=== PATIENT | male | born 1955 | race Caucasian/White ===

== ENCOUNTER 2016-09-17 12:35 | Inpatient (IN) | payer MEDICARE, OTHER ==
[~2016-09-17] VITALS: Ht 180.3 cm; Wt 88.3 kg
[~2016-09-17 12:35] MED LIST: AUGMENTIN 875-1 EACH PO; CEFDINIR300 MG PO; CLONAZEPAM1 MG PO; DEPAKOTE ER500 MG PO; DESMOPRESSIN A0.2 MG PO; DIVALPROEX SOD500 M1 PO; DIVALPROEX SOD500 MG PO; FLOMAX0.4 MG PO; HYDROCHLOROTH12.5 M1 PO; KLONOPIN1 MG PO; LEVAQUIN250 MG PO; LEVAQUIN500 MG PO; LEVOFLOXACIN250 MG PO; LEVOTHYROXINE137 MCG PO; LEVOTHYROXINE25 MCG PO; LEVOTHYROXINE50 MCG PO; LISINOPRIL2.5 MG PO; LITHIUM CARBON300 M1 PO; LITHIUM CARBON300 MG PO; MIRALAX17 GM PO; MUCINEX600 MG PO; OMEPRAZOLE20 MG PO; PRILOSEC20 MG PO; QUETIAPINE FUM300 MG PO; SEROQUEL300 MG PO; SYNTHROID25 MCG PO; ULTRAM50 MG PO
--- NOTE | 2016-09-21 09:28 | NUR ---
PT ASST INTO BED BY BEBA THAORN OUTPATIENT SURGERY. WIPE DOWN PROCESS DONE AND PT RESTING IN BED WITH SIDE RAILES UP. PT ABLE TO ANSWER SOME ADMISSION QUESTIONS. PT ALERT AND ORIENTED TO PERSON, PLACE AND PROCEDURE. UNABLE TO ANSWER DATE OR TIME. PT REPORTS TAKING "MEDICINE THIS AM WITH WATER" BOOT IN PLACE TO LEFT FOOT/ANKLE. LEFT FOOT WARM AND PINK, QUICK CAP REFILL NOTED. WHEN ASKED IF PT IS HAVING PAIN HE SAYS "YES" BUT IS UNBLE TO RATE PAIN. SMILE FACE PAIN ASSESSMENT TOOL ATTEMPTED WITH NO SUCCESS. PT HAS FLAT AFFECT AND DOES NOT APPEAR TO BE IN DISTRESS. PT ASKED IF TV TO BE ON AND CURRENTLY WATCHING AND ASKING ABOUT HAVING FOOD. MULTIPLE BRUISES NOTED ON RIGHT THIGH AND CALF, SMALL SCAB NOTED ON RIGHT CALF BELOW KNEE. APPEARS TO BE HEALING. SMALL SCAB NOTED ON LEFT ELBOW THAT APPEARS TO BE HEALING. PT REPORTS "FALL IN THE LAUNDRY ROOM".
--- NOTE | 2016-09-21 09:52 | NUR ---
BOOT REMOVED FROM LEFT FOOT/LEG TO REMOVE SWEAT PANTS. 3-4+ PITTING EDEMA NOTED IN ANKLE AND CALF AREA. REDNESS NOTED IN ANKLE AND MULTIPLE BRUISES NOTED ON LEFT CALF/FOOT AREA. PT ASST 2 RNS WITH MOVING OF THE FOOT AND REPOSITIONING INTO BOOT. FOOT/LEG ELEVATED ON PILLOW. WARM BLANKET GIVEN.
--- NOTE | 2016-09-21 10:44 | NUR ---
PT RESTING IN BED. ASKING ABOUT "WHEN CAN I EAT" "IS IT TIME FOR SURGERY" FARMER CATH INTACT WITH YELLOW URINE.
--- NOTE | 2016-09-21 10:53 | NUR ---
FARMER CATH BAG EMPTIED. 100 ML YELLOW URINE.
--- NOTE | 2016-09-21 12:54 | NUR ---
09/21/16 1254 Katty Castaneda 1247 - pt arrived to pacu. OPA IN PLACE. PILLOW PLACED NEAR LEG FOR EXPECTED MOVMENT UP ON WAKE UP.
--- NOTE | 2016-09-21 14:10 | NUR ---
PT TO ROOM 110 AT THIS TIME FORM PACU, LJ REPORT BRADEN THAO. PT ALERT AND VERBALIZING. REPORTS PAIN 4/10, REQUESTS FOOD, REPORTS NO NAUSEA. V/S STABLE
--- NOTE | 2016-09-21 15:19 | NUR ---
PLACED A BEAR HUGGER ON PT BECAUSE HE HAS BEEN SHIVERING, NURSE REQUESTED IT.
--- NOTE | 2016-09-21 15:42 | NUR ---
PT REPORTS THAT HE IS STILL PAINFUL 06/17 AFTER ONE NORCO ADMISNTERED, SECOND NORCO GIVEN NOW. PT REQUESTS MRE FOOD AT THIS TIME. PT HAS BEAR HUGGER ON DUE TO LOW BODY TEMP. THIS IS IMPROVING.
--- NOTE | 2016-09-21 16:45 | NUR ---
PT HAD HARDWARE PLACED FOR ANKLE TODAY, HE HAS BEEN TOLERATING REGULAR DIET GOOD URINE OUT. NORCO PO ADMINISTERED FOR PAIN / THIS HAS BEEN EFFECTIVE. HAS CONSULTED. FAMILY/SISTER IS IN ROOM AT THIS TIME. HE IS DRINKING COPIUOS AMOUNTS OF WATER. DRESSING AT LEFT ANKLE IS C/D/I, ICE IN TO LEFT ANKLE.
--- NOTE | 2016-09-21 19:00 | NUR ---
BEDSIDE REPORT RECEIVED FROM OFFGOING NURSE. PT LYING IN BED REQUESTING MILKSHAKES AND ICE CREAM. LLE ELEVATED ON PILLOW WITH ICE PRESENT TO LLE. SCD PRESENT TO RLE. MEPILEX, CAST PADDING, AND COBAN C/D/I. CMS INTACT. PT DENIES OTHER NEEDS. CALL LIGHT WITHIN REACH.
--- NOTE | 2016-09-21 20:00 | NUR ---
PT ASSESSMENT COMPLETE. PT DENIES PAIN. DRESSING TO LLE REMAINS C/D/I, ELEVATED ON PILLOW. PT ABLE TO TAKE HIS PILLS WITH WATER AND PUDDING, TOLERATED WELL. PT'S SISTER IN TO VISIT PATIENT. PT DENIES NEEDS. CALL LIGHT WITHIN REACH.
--- NOTE | 2016-09-21 21:30 | NUR ---
PT PUSHES CALL LIGHT, WONDERING ABOUT WHEN HE CAN GET UP IN THE MORNING. INQUIRING ABOUT CATHETER, WHERE HIS PANTS ARE. PT REASSURED. PILLOW PLACED BEHIND PT'S BACK FOR COMFORT. PT'S LLE REPOSITIONED BACK ONTO PILLOW. DRESSING TO LLE C/D/I. PT DENIES OTHER NEEDS AT THIS TIME. CALL LIGHT WITHIN REACH.
--- NOTE | 2016-09-22 01:20 | NUR ---
PT ASSESSMENT COMPLETE. PT STATES THAT HE IS HAVING PAIN. UNABLE TO ACCURATELY UTILIZE PAIN SCALE. PRN NORCO TO BE ADMINISTERED. DRESSING TO LLE C/D/I. CMS INTACT. LLE CONTINUES TO BE ELEVATED ON PILLOW. SCD PRESENT TO RLE. PT TALKATIVE. INQUIRING ABOUT HOW LONG HE WILL BE IN THE HOSPITAL. WANTS TO KNOW WHEN THE PHYSICAL THERAPIST WILL COME SEE HIM. ASKING TO BE TAKEN TO THE CAFETERIA. PT DENIES OTHER NEEDS. CALL LIGHT WITHIN REACH.
--- NOTE | 2016-09-22 03:35 | NUR ---
PT LYING IN BED AWAKE. PT REQUESTING 2 GLASSES OF ORANGE JUICE. INQUIRING ABOUT WHEN BREAKFAST WILL BE SERVED. PT STATES THAT LEG "FEELS BETTER". 1 GLASS OF ORANGE JUICE GIVEN. PT DENIES OTHER NEEDS. PRECAUTIONS REMAIN IN PLACE. LLE ELEVATED ON PILLOW. CALL LIGHT WITHIN REACH.
--- NOTE | 2016-09-22 04:51 | NUR ---
PT AWAKE ALL SHIFT. NORCO X1 PRN THIS SHIFT. PT UNABLE TO ACCURATELY UTILIZE PAIN SCALE. MEPILEX, CAST PADDING, COBAN TO LLE, C/D/I. LLE ELEVATED ON PILLOW. CMS INTACT, PT ABLE TO WIGGLE TOES. ICE TO LLE. SCD ON RLE. PT TOLERATING REGULAR DIET VERY WELL. DRINKING LARGE AMOUNTS OF FLUIDS. FARMER CATH IN PLACE. UO QS. IV SL.
--- NOTE | 2016-09-22 06:02 | NUR ---
PT ASSESSMENT COMPLETE. PT LYING IN BED AWAKE. DENIES PAIN OR NAUSEA. REQUESTING TO "GET A RIDE TO THE CAFETERIA". DRESSING TO LLE C/D/I. CMS INTACT. PT UNABLE TO STATE WHETHER HE FEELS NUMBNESS OR TINGLING, ABLE TO WIGGLE TOES. LLE REMAINS ELEVATED ON PILLOW. ICE PRESENT. SCD PRESENT TO RLE. FARMER CATH DRAINING CLEAR YELLOW URINE. PT DENIES NEEDS AT THIS TIME. CALL LIGHT WITHIN REACH.
--- NOTE | 2016-09-22 07:32 | NUR ---
BEDSIDE REPORT PT IS SITTING UP IN BED ALERT, ASKED WHEN BREAKFAST WOULD BE HERE. DRESSING CDI. FARMER DRAINING WELL, WNL. PT IS COOPERATIVE
--- NOTE | 2016-09-22 12:33 | NUR ---
PT SITTING IN CHAIR, LEG UP. HE TOLD ME HE FELL IN THE LAUNDRY RM. REALLY WANTS A CUP OF COFFEE, THEN HE DECIDED HE WANTED A COKE. CHECKED WITH HIS RN, YANNICK SAID EITHER WILL BE FINE. I GOT HIM A COLA, HE IMMEDIATELY BEGAN TO DRINK. WILL CONTINUE TO CHECK BACK
[2016-09-22] MEDS ORDERED: NEOMYCIN-POLYMY10 ML OTIC (12:42)
[2016-09-22] MEDS ORDERED: OXYCODONE-ACET1 EAC1 PO (12:43)
--- NOTE | 2016-09-22 12:54 | NUR ---
Pt got patient up in chair this morning.
--- NOTE | 2016-09-22 13:13 | NUR ---
MED REC COMPLETE WITH [facility] REFILL HISTORY.
--- NOTE | 2016-09-22 13:15 | NUR ---
PT SITTING UP IN RECLINER ALERT. PT REPORTS "ITS BETTER" WHEN ASKED IF HE IS HAIVNG PAIN.
--- NOTE | 2016-09-22 17:18 | NUR ---
PT HAS BEEN UP TWICE WITH PHYSICAL THERAPY NOT COMPLIANT WITH TOE TOUCH ONLY PER [facility]. HE HAS REPORTED PAIN 5-6/10 NORCO HAS BEEN EFFECTIVE. GOOD NUTRIONAL INTAKE, FLUID INTAKE, GOOD URINE OUT. PT HAS BEEN COOPERATIVE WITH CARE PLAN, BUT HAS DIFFICULTY FOLLOWING DIRECTION WELL. HIS DRESSING IS CDI, ELEVATED WITH ICE. SCD ON RIGHT LEG. S/L, V/S STABLE
--- NOTE | 2016-09-22 18:10 | NUR ---
PT RESTING IN BED EYES CLOSED RR EVEN 18 BPM, NO DISTRESS NOTED. PT APPEARS TO BE SLEEP WELL
--- NOTE | 2016-09-22 19:35 | NUR ---
Report recieved from day shift. Pt resting in bed. Denies needs at this time. Call keller within reach.
--- NOTE | 2016-09-22 23:08 | NUR ---
PT CONTINUES TO HAVE MOIST COUGH, O2 SAT 87% RA WHILE ASLEEP, APPLIED 2L O2, O2 LEVEL INCREASED TO 94%. REASSESSED PT 15 MINUTES LATER, PT'S O2 AT 89% ON 2L O2. CALLED DR. BLAIR, OBTAINED ORDER FOR [facility] [place]. CALLED RT TO INFORM OF PT'S STATUS.
--- NOTE | 2016-09-23 00:33 | NUR ---
PT SLEEPING. CONT PULSE OX IN USE, PT'S O2 AT 93% ON 3L O2. HR AT 100. CALL LOOMIS WITHIN REACH.
--- NOTE | 2016-09-23 04:11 | NUR ---
BOOSTED AND REPOSITIONED PT ON L SIDE WITH ASSIST. HYDRATION OFFERED, REFILLED WATER AND ICE PACKS. LLE ELEVATED ON 2 PILLOWS. PT'S O2 AT 96% ON 3L. TITRATED O2 DOWN TO 2L, O2 NOW AT 92-94%. CONT PULSE OX IN USE.
--- NOTE | 2016-09-23 05:46 | NUR ---
PT SLEPT ALL NIGHT. PT'S O2 WHILE ASLEEP ON RA 87%, APPLIED 2L, DIM/CRACKLES AUSCULTATED BLL ON FIRST ASSESSMENT, MOIST COUGH. OBTAINED PRN ATROVENT. CALLED RT TO NOTIFY. PT NOW ON 2L AT 94%, MOIST COUGH STILL PRESENT, LUNG SOUNDS HAVE IMPROVED MINIMALLY. NO PRN PAIN MED NEEDED.
--- NOTE | 2016-09-23 07:05 | NUR ---
BEDSIDE REPORT RECEIVED FROM EMMY. PATIENT RESTING IN BED AWAKE DENIED PAIN. DRESSING ON LEFT LEG INTACT. IV SITE S/L AND PATENT. NO APPARENT DISTRESS NOTED.
--- NOTE | 2016-09-23 08:20 | OR ---
[facility] [address], [place] [address] Signed DATE OF PROCEDURE: 09/21/16 PREOPERATIVE DIAGNOSIS Left ankle bimalleolar fracture dislocation. POSTOPERATIVE DIAGNOSIS Left ankle bimalleolar fracture dislocation. PROCEDURE PERFORMED Open reduction and internal fixation of bimalleolar fracture, left ankle. SURGEON: Natalie Núñez MD. ASSISTANTS KAROL Alanis PAS Kristin was present for the entire surgery and was critical for positioning, retraction, and wound closure. ANESTHESIA: General. BLOOD LOSS: Minimal. TOURNIQUET TIME: 47 minutes. IMPLANTS Seven-hole one-third tubular plate with 8 screws laterally, 3 screws and the hook plate medially. BRIEF HISTORY Otoniel is a 61-year-old gentleman with significant MRDD. He fractured his ankle and walked on it for at least 4 or 5 days before he was diagnosed. He did have a small wound medially that may have represented an open fracture, although it was difficult to tell at the time of his evaluation by us. Risks, benefits, and alternatives were discussed with him and his caregiver and they elected to proceed. DESCRIPTION OF PROCEDURE Once consent was obtained, he was taken to the operating room. After adequate anesthesia, he was placed on operating room table. All downside pressure points were placed and a hip bump was placed. He was placed in well-padded proximal thigh tourniquet and prepped and draped in a standard sterile fashion. His leg was exsanguinated using Esmarch bandage. Tourniquet inflated to 250 mmHg. Standard lateral approach through a Electronically Signed By: NATALIE NÚÑEZ MD 09/23/16 0820 PATIENT NAME: MARCIANO CORONA OPERATIVE REPORT DATE OF : 51 PHYSICIAN: NATALIE NÚÑEZ MD REPORT #: [id number] REPORT IS CONFIDENTIAL AND NOT TO BE RELEASED WITHOUT AUTHORIZATION [facility] [address], [place] [address] Signed direct incision was taken through skin and subcutaneous tissue. The periosteum was incised longitudinally and elevated. The fracture was identified, distracted and cleaned. It was then reduced and held using a single K-wire. A standard AO lag screw was placed from anterior to posterior. The plate was then fashioned to fit the lateral side of the fibula and was held with a single screw in the center position. This was checked using image intensifier and found to be satisfactory. Five total screws were placed proximally and 2 locking screws distally. The wound was copiously irrigated with antibiotic solution and closed using 2-0 nylon . Attention was turned to the medial side. A longitudinal incision was made. There was a small wound that was excised using an elliptical incision. The periosteum was flipped out of the wound and the fracture was cleaned and held using a clamp. The K-wire was advanced from the tip of the malleolus engaging the body of the tibia. This was checked using image intensifier and found to be satisfactory. The plate was then placed just anterior to this. The single screw in the distal end of the hook plate was then advanced parallel to the wire. The 2 screws proximally were placed compressing the fracture. Again, this was cleaned and closed using 2-0 nylon only on this side. The wounds were dressed with Mepilex Ag dressing and bulky Reed dressing. He tolerated procedure well. All sponge, needle, instrument counts were correct. Natalie Núñez MD BA/Huang /[id number] cc: Grzegorz Rios MD Electronically Signed By: NATALIE NÚÑEZ MD 09/23/16 0820 PATIENT NAME: MARCIANO CORONA OPERATIVE REPORT DATE OF : 51 PHYSICIAN: NATALIE NÚÑEZ MD REPORT #: [id number] REPORT IS CONFIDENTIAL AND NOT TO BE RELEASED WITHOUT AUTHORIZATION
--- NOTE | 2016-09-23 09:05 | NUR ---
SHIFT ASSESSMENT COMPLETE. PATIENT DENIES PAIN AT THIS TIME. PADDING CAST ON LEFT FOOT WNL. PEDAL PULSES PRESENT AND PALPABLE. CONGESTIVE COUGH. LUNGS COARSE THROUGHOUT. PATIENT ABLE TO ANSWER SIMPLE QUESTIONS. POSITIVE BOWEL TONES. SKIN INTACT. WILL CONTINUE TO MONITOR.
--- NOTE | 2016-09-23 09:38 | NUR ---
PATIENT AWAKE IN BED. SET UP FOR BREAKFAST. EMPTYED GARBAGE. ICE WATER. CALL LIGHT IN REACH.
--- NOTE | 2016-09-23 09:55 | NUR ---
ASSISTED PHYSICAL THERAPIST TO GET PATIENT UP TO CHAIR. PATIENT DOES NOT FOLLOW COMMAND WELL. WALKED TO CHAIR WITH 2 PERS ASSIST WITH FWW. PATIENT SITTING IN THE CHAIR AT THIS TIME. DENIES PAIN. NO APPARENT DISTRESS NOTED.
--- NOTE | 2016-09-23 11:37 | NUR ---
PATIENT UP IN CHAIR. TOOK VITALS. MADE SURE CHAIR ALARM WAS ON. CALL LIGHT IN REACH.
--- NOTE | 2016-09-23 12:42 | NUR ---
PATIENT UP TO CHAIR RESTING. REPORTED 3/10 PAIN AT THE LEFT ANKLE. PATIENT WAS MEDICATED. EATING LUNCH AT THIS TIME.
--- NOTE | 2016-09-23 13:15 | NUR ---
DR BLAIR WAS IN ROOM TO EVALUATE PATIENT. PLAN FOE X-RAY DUE TO LOW O2 SAT AND CONGESTIVE COUGH.
--- NOTE | 2016-09-23 14:50 | NUR ---
PATIENT RESTING IN THE CHAIR, EYES CLOSED. RR EVEN/UNLABORED. NO APPARENT DISTRESS NOTED. WILL CONTINUE TO MONITOR
--- NOTE | 2016-09-23 14:59 | NUR ---
PATIENT IN BED. TOOK VITAILS. TOOK LUNCH TRAY. CLEANED FACE. FRESH ICE WATER. CALL LIGHT IN REACH.
--- NOTE | 2016-09-23 18:30 | NUR ---
PATIENT HAD A FAIR DAY. WORKED WITH PHYSICAL THERAPIST TWICE TODAY AND TOLERATED WELL. PADDING CAST ON LEFT LEG AND FOOT WNL. PEDAL PULSES PRESENT. HAS BEEN UP TO CHAIR WITH 2 PERS ASSIST WITH FWW. S/L. CHEST X-RAY WAS DONE THIS PM, NEGATIVE FOR PNEUMONIA. LEFT FOOT TOE TOUCH ON AMBULATION. PAIN MED WAS ADMINISTERED ONCE.
--- NOTE | 2016-09-23 18:57 | NUR ---
CLAUDE CABRERA AND I TRANSFERRED PATIENT FROM BED TO CHAIR USING WALKER AND GAITBELT. PATIENT IS CURRENTLY SITTING IN CHAIR WAITING FOR DINNER TO ARRIVE. NURSE ADELIA CALLED IT DOWN EARLIER. NURSE NATHANAEL CALLED DOWN AND KITCHEN SAID THEY ARE RUNNING BEHIND. I PUT A NEW PULSE OX ON HIS FINGER HIS WAS GETTING DIRTY AND READING INACCURATE. CHAIR ALARM IS ON PATIENT. CALL LIGHT IS IN REACH.
--- NOTE | 2016-09-23 23:33 | NUR ---
PT ASLEEP. SPO2 93% ON RA. HR 90. HOB UP.
--- NOTE | 2016-09-24 01:47 | NUR ---
PT REPOSTIONED TO R SIDE. UNABLE TO RATE PAIN, NO PAIN PER FACE SCALE WITH REPOSITIONING. HAS REMAINED ASLEEP. PULSE OX ON. VS TAKEN. GOOD CMS TO L FOOT. SWELLING UNCHANGED. ICE TO LEG.
--- NOTE | 2016-09-24 05:42 | NUR ---
PT GIVEN 1 NORCO FOR PAIN. WHEN ASKED IF HIS LEG HURTS, REPLIES 'IT'S BETTER', GRIMACES SOME WITH MOVEMENT. NEW ICE APPLIED TO LLE. REPOSITIONED WITH PILLOWS.
--- NOTE | 2016-09-24 06:04 | NUR ---
PT HAD RESTFUL NIGHT. LLE REMAINED ELEVATED ON PILLOWS WITH ICE. PAIN UNREMARKABLE. REPOSITIONED WITH PILLOWS AND OFFERED FLUIDS. THIS AM PT GRIMACED WITH MOVEMENT. 1 NORCO GIVEN PO WITH PUDDING. PT SWALLOWING WELL. ENCOURAGING COUGHING - PT HAS DIFFICULTY FOLLOWING COMMANDS/COMPREHENSION OF INSTRUCTIONS DIFFICULT FOR HIM. SPOKE WITH RT ABOUT ORDERING CPT TO MOBILIZE SECRETIONS, IMPROVE AERATION IN LUNGS. PT WITH 99.7 TEMP, HR 90, SPO2 90-94% ON RA. GOOD CMS TO LLE. BED ALARM ON, RAILS UP X4.
--- NOTE | 2016-09-24 07:13 | NUR ---
BEDSIDE REPORT RECIEVED FROM JODI. PATIENT RESTING IN BED AWAKE. DENIES PAIN AT THIS TIME. NO APPARENT DISTRESS NOTED.
--- NOTE | 2016-09-24 07:18 | NUR ---
DR MONROE IN TO REMOVE PT DRESSING. SUTURES ON ANKLES INTACT, PLACED NEW MEPELEX DRESSING ON EACH SIDE OF ANKLE (L FOOT). WRAPPED IN ИРИНА WRAP. PLACED BOOT ON PT. TOLERATED WELL.
--- NOTE | 2016-09-24 09:02 | NUR ---
CLAUDE MYLES HELPED PUT PATIENT IN CHAIR. PICKED UP ROOM. EMPTYED GARBAGE. FRESH ICE WATER. FULL LINEN CHANGE. GOT PATIENT A CUP OF ORANGE JUICE. ORDERED PATIENT BREAKFAST.
--- NOTE | 2016-09-24 09:40 | NUR ---
PATIENT ASSESSMENT DONE. PATIENT DENIES PAIN AT THIS TIME. LUNG STILL COARSE. PATIENT STILL HAVE CONGESTED COUGH. UP TO CHAIR. DR MONROE WAS IN TO SEE PATIENT EARLY. REMOVED DRESSING AND MEPILEX AND WRAP ON LEFT ANKLE. PEDAL PULSES PALPABLE. IV SITE PATENT. TRACE EDEMA ON THE LEFT FOOT.
--- NOTE | 2016-09-24 10:12 | NUR ---
PATIENT RESTING IN BED AT THIS TIME. DENIES PAIN. BOOT ON LEFT FOOT AND ELEVATED.
--- NOTE | 2016-09-24 12:16 | NUR ---
PATIENT AWAKE IN BED. TOOK VITALS. FRESH ICE WATER. PATIENT IS NOW IN CHAIR EATTING LUNCH.
--- NOTE | 2016-09-24 12:19 | NUR ---
PT SITTING IN CHAIR, LEFT LEG ELEVATED. HE SEEMS TO BE COMPLIANT, MENTIONED THAT HE DID NOT HAVE ANY PAIN. VERBAL RESPONSES ARE SLOW, BUT CLEAR. WILL LET HIM FINISH LUNCH, GOD BLESS
--- NOTE | 2016-09-24 13:50 | NUR ---
PATIENT WAS UP WALKING IN THE ROOM WITH PHYSICAL THERAPIST. TOLERATED WELL.
--- NOTE | 2016-09-24 13:55 | NUR ---
PATIENT WAS UP WALKING TIN THE HALLWAY WITH PHYSICAL THERAPIST. TOLERATED WELL. NO COMPLAINTS OF PAIN EXCEPT ON THE LEFT GREAT TOE WITH PRESSUE.
--- NOTE | 2016-09-24 14:38 | NUR ---
CLAUDE CABRERA AND NURSE BATSHEVA GOT PATIENT BACK TO BED USING WALKER. WE GOT PATIENT FRESH ICE WATER. PATIENTS CALL LIGHT IS IN REACH.
--- NOTE | 2016-09-24 16:56 | NUR ---
PATIENT ASSISTED TO BATHROOM WITH 2 PERSON TO SHOWER. NO APPARENT DISTRESS.
--- NOTE | 2016-09-24 17:55 | NUR ---
PATIENT HAS BEEN UP TO CHAIR FOR EACH MEAL. REPORTED MINIMAL PAIN FOR THIS SHIFT. NORCO ADMINISTERED ONCE. DRESSING ON LEFT ANKLE WAS CHANGED THIS AM IA MONROE AND REDRESS WITH MEPILEX AND ИРИНА WRAP. BOOT APPLIED. PATIENT HAD SHOWERED TODAY. IV SITE PATENT AND S/L. TRACE EDEMA ON THE LEFT FOOT. STILL HAVE CONGESTIVE COUGH. LUNGS STILL COARSE ON AUSCULTATION. CHRONIC FARMER IN PLACE AND DRAINING WELL.
--- NOTE | 2016-09-24 18:48 | NUR ---
PATIENT RESTING THE CHAIR. DENIES PAIN AT THIS TIME. NO ACUTE DISTRESS.
--- NOTE | 2016-09-24 19:30 | NUR ---
IN TO MEET PT, BEDSIDE REPORT RECIVED. PT AWAKE, WATCHING TV. WALKING BOOT IN PLACE. PT DENIES PAIN AT THIS TIME. FARMER IN PLACE. IS AT BEDSIDE. FRESH WATER GIVEN. CALL LIGHT WITH IN REACH.
--- NOTE | 2016-09-24 22:52 | NUR ---
IN TO CHECK ON PT, PT APPEARS TO BE SLEEPING. NO APPARENT DISTRESS NOTED. RR EVEN AND UNLABORED. PULSE OX IN PLACE. CALL LIGHT WITH IN REACH.
--- NOTE | 2016-09-25 02:05 | NUR ---
IN TO CHECK ON PT, PT APPEARS TO BE SLEEPING. NO APPARENT DISTRESS NOTED. RR EVEN AND UNLABORED. WALKING BOOT IN PLACE PER REQUEST OF THE PT. TEDS IN PLACE. CALL LIGHT WITH IN REACH.
--- NOTE | 2016-09-25 04:15 | NUR ---
PT HAS HAD UNEVENTFUL SHIFT, RESTED WELL. PRN PAIN MEDICATION. DRSG CLEAN DRY AND INTACT. BOOT ON FOR PT COMFORT.IV SITE S/L. TRACE EDEMA NOTED IN THE L FOOT. LUNG SOUNDS IMPROVE. COUGH ABSENT ON SHIFT. CHRONIC FARMER INPLACE AND DRAINING.
[2016-09-25] MEDS ORDERED: CLONAZEPAM1 MG PO (13:56)
--- NOTE | 2016-09-26 07:33 | DS ---
[facility] [place] [facility] [address], [place] [address] Signed ADMIT DATE: 09/21/2016 DISCHARGE DATE: 09/25/2016 ADMISSION DIAGNOSIS: Bimalleolar fracture dislocation, left ankle. DISCHARGE DIAGNOSIS: Bimalleolar fracture dislocation, left ankle. PROCEDURE PERFORMED: Open reduction and internal fixation, left ankle. BRIEF HISTORY: Otoniel is a 61-year-old gentleman with significant MRDD. He had suppurative fracture about a week and half ago before the surgery and was walking on it. He had partial dislocation of the ankle with severe bimalleolar fracture. He was seen in clinic and admitted to the hospital where we discussed surgery. He elected to proceed. DESCRIPTION OF PROCEDURE: Once consent was obtained, he was taken to the operating room and underwent the above-named procedure. Due to his living in a shelter, he was taken to [facility] r o and subsequently admitted to the floor for continued direct care. Our plan was to admit him to swing beg to continue inpatient rehab. He did well with postoperative pain management utilizing oxycodone and had a little bit of trouble with drooling, but no aspiration was noted and his chest x-ray was clear. He was kept on DVT prophylaxis of SCDs and meds. He was seen by physical therapy and has 2 person max assist. He will be discharged to swing bed for continued inpatient rehab on his current medication s. Natalie Núñez MD BA/Huang /[id number] Electronically Signed By: NATALIE NÚÑEZ MD 09/26/16 0733 PATIENT NAME: MARCIANO CORONA CATY DISCHARGE SUMMARY DATE OF : 51 PHYSICIAN: NATALIE NÚÑEZ MD REPORT #: [id number] REPORT IS CONFIDENTIAL AND NOT TO BE RELEASED WITHOUT AUTHORIZATION
== END 2016-09-25 06:36 | disposition swing bed (61) | DRG 493 ==
LOC: MS 09-21 08:55 → DSVR 09-21 08:55 → MS 09-21 11:15 → OPS 09-21 12:22 → EDSTATUS 09-21 12:28 → MS 09-21 12:28
PROVIDERS: ADMIT Specialist
PROC: 0QSH04Z Reposition Left Tibia with Internal Fixation Device, Open Approach (ICD-10-PCS; principal; 2016-09-21 11:15)
DX: S82.842A Displaced bimalleolar fracture of left lower leg, initial encounter for closed fracture (principal); N18.4 Chronic kidney disease, stage 4 (severe); J98.11 Atelectasis; W19.XXXA Unspecified fall, initial encounter; F31.9 Bipolar disorder, unspecified; G89.18 Other acute postprocedural pain; I12.9 Hypertensive chronic kidney disease with stage 1 through stage 4 chronic kidney disease, or unspecified chronic kidney disease; D63.1 Anemia in chronic kidney disease; D69.6 Thrombocytopenia, unspecified; E03.9 Hypothyroidism, unspecified; R09.02 Hypoxemia
CPT/HCPCS: 01480; 36415; 64445; 71010; 73600; 76942; 80069; 80164; 85025; 94667; 94762; 97110; 97116; 97162; 97530; C1713; J0690; J1100; J2250; J2370; J2405; J2704; J2795; J7120

== ENCOUNTER 2016-09-25 06:38 | Inpatient (IN) | payer MEDICARE, OTHER ==
[~2016-09-25] VITALS: Ht 180.3 cm; Wt 88.3 kg
[~2016-09-25 06:38] MED LIST changes: +NEOMYCIN-POLYMY10 ML OTIC; +OXYCODONE-ACET1 EAC1 PO
--- NOTE | 2016-09-25 07:27 | NUR ---
REPORT RECEIVED FROM GT, ASSUMING PATIENT CARE AT THIS TIME. PATIENT RESTING IN BED,APPEARS TO BE SLEEPING. RR EVEN UNLABORED. NO APPARENT DISTRESS NOTED.
--- NOTE | 2016-09-25 08:25 | NUR ---
PATIENT ASSISTED TO CHAIR WITH 2 PERS ASSIST WITH NO DIFFICULTY. SITTING IN THE CHAIR EATING BREAKFAST AT THIS TIME.
--- NOTE | 2016-09-25 10:56 | NUR ---
CLEANED ROOM. EMPTY GARBAGE. ASSISTED PATIENT TO CHAIR. SET PATIENT UP FOR BREAKFAST. EMPTYED FARMER. FRESH ICE WATER. CALL LIGHT IN REACH.
--- NOTE | 2016-09-25 13:15 | NUR ---
PATIENT RESTING IN BED. DENIES PAIN. WAS UP TO CHAIR FOR MEAL.
[2016-09-25] MEDS ORDERED: CLONAZEPAM1 MG PO (13:56)
--- NOTE | 2016-09-25 13:56 | NUR ---
MED REC COMPLETE WITH REFILL HISTORY AND FROM PREVIOUS ADMISSION BEFORE GOING SWING BED.
--- NOTE | 2016-09-25 15:37 | NUR ---
PATIENT RESTING IN BED DENIES PAIN AT THIS TIME.
--- NOTE | 2016-09-25 18:59 | NUR ---
PATIENT HAD FAIR DAY. WALKED WITH PT IN ROOM TOLERATED WELL. SWING BED STATUS. DRESSING ON LEFT ANKLE D/C/I WITH ИРИНА WRAP. BOOT WAS ON ALL DAY. PATIENT HAS BEEN APPROPRIATE.
--- NOTE | 2016-09-25 19:45 | NUR ---
IN TO SEE PT, PT ATTEMPTING TO GET OUT OF BED. PT UP TO BSC WITH 2 PERSONA ASSIST AND FWW. REINFOCED TOE TOUCH WEIGHT BEARING ON THE LLE. PT FOLLOWS COMMANDS FOR BRIEF PERIODS THEN NEEDS TO BE REDIRECTED. PT ASSISTED BACK TO BED. ALL SIDE RAILS UP AND BED ALRAM ON. PUDDING GIVEN PER PT REQUEST. WATER AT BEDSIDE. CALL LIGHT WITH IN REACH.
--- NOTE | 2016-09-25 22:30 | NUR ---
IN TO CHECK ON PT, PT AWAKE ADJUSTING BEDDING. PT REPOSITIONED FOR COMFORT. NO FURTHER NEEDS AT THIS TIME. CALL LIGHT WITH IN REACH.
--- NOTE | 2016-09-26 01:45 | NUR ---
IN TO CHECK ON PT, PT APPEARS TO BE SLEEPING. NO APPARENT DISTRESS NOTED. FARMER IN PLACE. WATER AT BEDSIDE. BEDALARM ON AND SIDERAILS UP. CALL LIGHT WITH IN REACH.
--- NOTE | 2016-09-26 04:24 | NUR ---
AT THE START OF SHIFT PT ATTEMPTED TO EXIT BED WITHOUT ASSIST. UP TO BSC WITH 2 PERSON ASSIST AND FRONT WHEELED WALKER. NEEDS REINFORCEMENT REGARDING TOE TOUCH WEIGHT BEARING. RESTED WELL DURING THE SECOND HALF OF SHIFT. CHRONIC FARMER IN PLACE. NO C/O PAIN.
--- NOTE | 2016-09-26 09:35 | NUR ---
PHYSICAL THERSPIST IN ROOM WITH PATIENT. DENIES ANY PAIN AT THIS TIME. RESTING IN BED.
--- NOTE | 2016-09-26 12:00 | NUR ---
PATIENT RESTING IN BED AT THIS TIME, WITH EYES CLOSED. RR EVEN/UNLABORED. NO APPARENT DISTRESS NOTED.
--- NOTE | 2016-09-26 15:00 | NUR ---
PATIENT RESTING IN BED QUIETLY. EYES CLOSED. RR EVEN/UNLABORED.
--- NOTE | 2016-09-26 18:03 | NUR ---
PATIENT HAD A FAIR DAY. WORKED WITH PHYSICAL THERAPIST AND TOLERATED WELL. BOOT ON LEFT LEG. DRESSING AND ИРИНА WRAP WNL.PEDAL PULSES PALPABLE. 1+ EDEMA ON THE LEFT FOOT. PATIENT STILL HAVE CONGESTED COUGH. LUNGS CLEAR BUT DIM IN THE BASES.
--- NOTE | 2016-09-26 18:08 | NUR ---
PATIENT HAD A FAIR DAY. WORKED WITH PHYSICAL THERAPIST AND TOLERATED WELL. BOOT ON LEFT LEG. DRESSING AND ИРИНА WRAP WNL.PEDAL PULSES PALPABLE. 1+ EDEMA ON THE LEFT FOOT. PATIENT STILL HAVE CONGESTED COUGH. LUNGS CLEAR BUT DIME IN THE BASES
--- NOTE | 2016-09-26 19:20 | NUR ---
REPORT RECIEVED ON PT. PT AWAKE WATCHING TV. FARMER IN PLACE. DRSG C/D/I. DENIES PAIN AT THIS TIME. NO FURTHER NEED CALL LIGHT WITH IN REACH.
--- NOTE | 2016-09-26 22:10 | NUR ---
PT ATTEMPTING TO GET OOB. IN TO SEE PT. PT QUESTIONING IF IT IS TIME TO GET UP FOR BREAKFAST. REORIENTED TO TIME. WARM BLANKETS GIVEN. ALL SIDE RAILS UP AND BED ALARM ON. CALL LIGHT WITH IN REACH.
--- NOTE | 2016-09-27 01:44 | NUR ---
IN TO CHECK ON PT, PT APPEARS TO BE SLEEPING. NO APPARENT DISTRESS NOTED. RR EVEN AND UNLABORED. FARMER IN PLACE. CALL LIGHT WITH IN REACH.
--- NOTE | 2016-09-27 04:16 | NUR ---
PT HAS HAD AN UNEVENTFUL SHIFT, SLEPT WELL. PT REORIENTED TO TIME OF DAY ON MULTIPLE OCCASIONS AT THE BEGINNING OF SHIFT. DRSG C/D/I, PEDAL PULSE PALPABLE. 1+ EDEMA IN THE LLE. NO PAIN ON SHIFT. CHRONIC FAMRER. SLIGHT COUGH NOTED.
--- NOTE | 2016-09-27 08:23 | NUR ---
PT LYING IN BED. PILLOW PLACED ON LATERAL SIDE OF LEFT ANKLE TO SUPPORT. PT HAS NO COMPLAINTS AT THIS TIME.
--- NOTE | 2016-09-27 09:07 | NUR ---
pt working with physical therapy now. pt states "i want to lay down". easily redirected to work with physical therapy and then will allow to lay down.
--- NOTE | 2016-09-27 10:19 | NUR ---
pt up to bathroom multiple times to have BM. shower given this morning after BM on body.
--- NOTE | 2016-09-27 14:12 | NUR ---
pt up to bathroom often to have BM. unsuccessful. order received for dulcolax suppos. given with orienting RN, Daniele. Attempted to disimpact patient twice so far. Small success.
--- NOTE | 2016-09-27 17:54 | NUR ---
UP TO BATHROOM MULTIPLE TIMES THIS MORNING. HARD IMPACTED STOOL IN RECTUM. DULCOLAX SUPPOS GIVEN. MAY GIVE SECOND DOSE OF SUPPOS TONIGHT NEEDED. BOOT ON LEFT ANKLE IN PLACE. NO IV ACCESS. SHOWER TODAY.
--- NOTE | 2016-09-27 19:38 | NUR ---
IN TO CHECK ON PT, PT AWAKE IN BED. DENIES PAIN. STATES HE HAS BEEN OOB A LOT TODAY, "I AM TIRED." BRACE IN PLACE ON L ANKLE. CHRONIC FARMER IN PLACE. GORDONG C/D/I. ALL SIDE RAILS P, BED ALRM ON. CALL LIGHT WITH IN REACH.
--- NOTE | 2016-09-27 20:45 | NUR ---
IN TO CHECK ON PT, PT SLEEPING. AWAKENS TO VOICE. ATTENDS CHANGED. SUPPOSITORY ADMINISTERED. PT TUCKED IN. NO FURTHER NEEDS AT THIS TIME. ALL BEDRAILS UP, BED ALARM ON. CALL LIGHT WITH IN REACH.
--- NOTE | 2016-09-28 00:36 | NUR ---
IN TO CHECK ON PT, PT SLEEPING. NO APPARENT DISTRESS NOTED. FARMER IN PLACE. CALL LIGHT WITH IN REACH.
--- NOTE | 2016-09-28 03:14 | NUR ---
IN TO CHANGE PT'S ATTENDS. PT AWAKE READJSUTING IN BED. SMALL LIQUID BM NOTED. WARN BLANKET GIVEN. CALL LIGHT WITH IN REACH.
--- NOTE | 2016-09-28 04:17 | NUR ---
PT UP TO BSC TO ATTEMPT BM. PT ENCOURAGE TO PUSH. SMALL AMOUNT OF INCONTINENCE NOTED. PT ASSITED BACK TO BED. FARMER IN PLACE. FRESH WATER GIVEN. CALL LIGHT WITH IN REACH.
--- NOTE | 2016-09-28 07:46 | NUR ---
pt awake lying in bed during bedside shift report. received report from Christopher THAO. Pt up multiple times to have BM on bulb inspector. Pt anxious for breakfast this morning.
--- NOTE | 2016-09-28 17:15 | NUR ---
PT WORKED WITH PHYSICAL THERAPY TODAY. HAD MULTIPLE BMs. ATTENDS IN PLACE. BED/CHAIR ALARM. SHOWER TODAY.
--- NOTE | 2016-09-28 21:06 | NUR ---
PT LAYING IN BED AWAKE, ALERT AT THIS TIME. PT PLEASENT. DENIES PAIN AT THIS TIME. BRACE ON LEFT LEG. PT AMBULATED TO RESTROOM FOR BM, PT IMPULSIVE AND DOES NOT FOLLOW DIRECTIONS VERY WELL, CONSTANT DIRECTION IS NEEDED WITH PT WHEN AMBULATING. PT PLEASENT AND SEEMS TO WANT TO FOLLOW DIRECTIONS, BUT DOES NOT HAVE THE MENTALITY TO FULLY CARRY OUT DIRECTIONS WHILE BEING INSTRUCTED. PT BACK IN BED. BED RAILS UP. BED ALARM ACTIVATED. PT HAS NO FURHTER NEEDS.
--- NOTE | 2016-09-29 01:26 | NUR ---
PT APPEARS TO BE SLEEPING. RR WNL AND UNLABORED. LIGHTS OFF IN ROOM, VISIBLE FROM NURSES STATION. BED ALARM ACITVE.
--- NOTE | 2016-09-29 06:25 | NUR ---
PT HAD UNEVENTFUL NIGHT. SLEPT MAJORITY OF SHIFT. INCONTINENT OF URINE AND BM LAST NIGHT. PT DENIED PAIN ENTIRE SHIFT. BRACE HAS BEEN IN PLACE ALL NIGHT. 1X ASSIST, NEEDS CONSTANT INSTRUCTIONS, CAN BE FAST MOVING AND A LITTLE IMPULSIVE AT TIMES. DOES NOT ALWAYS USE CALL LIGHT APPROPRIATLY. BED ALARM ACTIVE.
--- NOTE | 2016-09-29 07:27 | NUR ---
bedside report received from Corrine THAO at 0655. Pt lying in bed awake. Anxious for breakfast. Left ankle boot in place. No complaints at this time. Discussed plan of care for the day with Christina ARCE. Will plan to have shower, meals in chair, and work with Physical Therapy.
--- NOTE | 2016-09-29 10:44 | NUR ---
PT SHOWERED AND THEN SAT UP IN CHAIR FOR ABOUT AN HOUR THEN RETURNED TO BED, BED ALARM ON. PT ASKED FOR MORE ICE WATER
--- NOTE | 2016-09-29 14:32 | NUR ---
PT IS LYING IN BED AFELY WITH CALL LIGHT IN REACH AND BED ALARM ON. PT ASKED FOR CHOCOLATE MILK
--- NOTE | 2016-09-29 14:51 | NUR ---
PT HAD LARGE FORMED BM THIS AFTERNOON. ATE SMALL AMOUNT OF LUNCH. SLEEPING NOW.
--- NOTE | 2016-09-29 17:51 | NUR ---
UNEVENTFUL DAY. LARGE FORMED BM THIS AFTERNOON. SLEEPY THIS AFTERNOON. 1PA. BED ALARM.
--- NOTE | 2016-09-29 18:49 | NUR ---
PT IS RESTING IN BED SAFELY WITH CALL LIGHT IN REACH AND BED ALARM ON. PT ASKED FOR CHOCOLATE MILK
--- NOTE | 2016-09-29 21:14 | NUR ---
PT LAYING IN BED, APPEARED TO BE SLEEPING WHEN ENTERING ROOM. WOKE TO RN VOICE. PT DENIES PAIN. BRACE ON LEFT LEG IN PLACE. GAVE FRESH ICE WATER AND A CHOCOLATE ENSURE. BED ALARM ACTIVATED. PT ALERT. COOPERATIVE. PT HAS NO FURTHER NEEDS AT THIS TIME. VISIBLE FROM NURSES STATION.
--- NOTE | 2016-09-30 00:38 | NUR ---
PT APPEARS TO BE SLEEPING. RR WNL AND UNLABORED. LIGHTS OUT AND TV OFF IN ROOM. BED ALARM ACITVATED. CALL LIGHT IN REACH.
--- NOTE | 2016-09-30 05:18 | NUR ---
PT HAD UNEVENTFUL NIGHT, SLEPT MAJORITY OF SHIFT. DENIED PAIN. USED CALL LIGHT APPROPRIATLY. BED ALARM ACTIVATED. BRACE IN PLACE ON LEFT LEG. PT COOPERATIVE, BUT DOES NEED CONSTANT DIRECTION, IMPULSIVE AT TIMES.
--- NOTE | 2016-09-30 07:00 | NUR ---
BEDSIDE HANDOFF REPORT RECIEVED FROM DRIER TENDER NAPHTHALENE RN.
--- NOTE | 2016-09-30 08:27 | NUR ---
PT SITTING IN CHAIR, REQUESTING TO RETURN TO BED, ENCOURAGED TO SIT IN CHAIR FOR 30 MORE MINUTES, AGREEABLE. PT LUNG SOUNDS CLEAR, ON ROOM AIR. PT WITH GOOD APPETITE, ATE 100% OF BREAKFAST, DENIES NAUSEA. PT DENIES PAIN. LEFT ANKLE WITH ИРИНА AND BOOT IN PLACE, CMS INTACT. PT WITH CHRONIC FARMER, DRAINING YELLOW URINE. PT IMPULSIVE, CHAIR ALARM IN PLACE.
--- NOTE | 2016-09-30 11:10 | NUR ---
PT RESTING IN BED. BED ALARM ON.
--- NOTE | 2016-09-30 11:36 | NUR ---
PATIENT AWAKE IN BED. HELPED PATIENT TO THE BATHROOM. COMPLETE LINEN CHANGE. CLEANED ROOM. GAVE PATIENT A SHOWER. SET UP FOR BREAKFAST. GAVE PATIENT MILK. CALL LIGHTIN REACH.
--- NOTE | 2016-09-30 13:10 | NUR ---
PT RESTING IN BED. DENIES NEEDS AT THIS TIME.
--- NOTE | 2016-09-30 15:00 | NUR ---
PT RESTING IN BED. BED ALARM ON. PT DENIES NEEDS AT THIS TIME.
--- NOTE | 2016-09-30 16:35 | NUR ---
PATIENT AWAKE IN BED DOING GOOD GOT SOME COLOR CRAYONS AND SOME COLORING PAGES. EMPTY FOLY. PATIENT HAS BED ALARM ON AND HAS HIS CALL LIGHT IN REACH.
--- NOTE | 2016-09-30 18:19 | NUR ---
PT HAD UNEVENTFUL DAY. WORKED WITH PHYSICAL THERAPY. PT TOLERATING REGULAR DIET. ON ROOM AIR. 1PA WITH FWW, DOES NOT FOLLOW WEIGHT BEARING LIMITS. PT WITH CHRONIC FARMER IN PLACE, DRAINING YELLOW URINE, QS. HAD BM TODAY, SOFT. PT WITHOUT IV ACCESS. BED ALARM, IMPULSIVE.
--- NOTE | 2016-09-30 21:00 | NUR ---
PT LAYING IN BED. VERY TALKATIVE TONIGHT, FRIENDLY. DENIES PAIN. BRACE IN PLACE ON LEFT LEG. BED ALARM ACTIVATED. GAVE FRESH ICE WATER AND CHOCOLATE MILK. PT HAS CALL LIGHT IN REACH. NO FURTHER NEEDS.
--- NOTE | 2016-09-30 23:30 | NUR ---
PT SEEMS RESTLESS TONIGHT, TRIED TO GET OUT OF BED WITHOUT ASSISTENCE. PT IS COOPERATIVE. STATES "I JUST CANT SLEEP RIGHT NOW, MY ANKLE HURTS, I SPRAINED MY ANKLE." PT REPORTS THAT HE FEELS PAIN IN HIS LEG, COULD NOT GIVE A NUMBER REGARDING PAIN. GAVE PERCOCET FOR PAIN. GAVE WARM BLANKET. GAVE FRESH ICE WATER AND A CHOCOLATE MILK. PT HAS NO FURTHER NEEDS. CALL LIGHT IN REACH.
--- NOTE | 2016-10-01 05:21 | NUR ---
PT AWAKE MOST OF FIRST HALF OF SHIFT. MID SHIFT PT COMPLAINED OF PAIN IN HIS ANKLE, GAVE PERCOCET, PT THEN WAS ABLE TO FALL ASLEEP FOR THE REST OF SHIFT. USED CALL LIGHT APPROPRIATLY. BED ALARM FOR SAFETY DUE TO PT SOMETIMES BEING IMPULSIVE. STANDBY ASSIST. BRACE ON LEFT LEG IN PLACE. PLEASENT.
--- NOTE | 2016-10-01 06:23 | NUR ---
PT WOKE TO TAKE MORNING MED. QUICKLY FELL BACK ASLEEP. RR WNL AND UNLABORED.
--- NOTE | 2016-10-01 06:29 | NUR ---
pt appears asleep.
--- NOTE | 2016-10-01 07:00 | NUR ---
BEDSIDE HANDOFF REPORT RECEIVED FROM COAT EXAMINER RN. PT SLEEPING, LEFT UNDISTURBED.
--- NOTE | 2016-10-01 09:30 | NUR ---
PT SITTING IN CHAIR. PT DENIES PAIN. PT ON ROOM AIR, LUNG SOUNDS CLEAR. PT TOLERATING REGULAR DIET. PT WITH FARMER IN PLACE, DRAINING YELLOW URINE. CMS INTACT, PULSES PALPABLE. ИРИНА BANDAGE AND WALKING BOOT IN PLACE TO LEFT FOOT. PT REQUESTING BLANKETS AND JUICE, PROVIDED. PT REQUESTING TO GET TO BED, ENCOURAGED TO SIT UP UNTIL LUNCH.
--- NOTE | 2016-10-01 10:50 | NUR ---
PT WORKING WITH PHYSICAL THERAPIST.
--- NOTE | 2016-10-01 15:00 | NUR ---
PT RESTING IN BED. PT DENIES PAIN. PT DENIES NEEDS AT THIS TIME.
--- NOTE | 2016-10-01 16:32 | NUR ---
AWAKE IN BED. TOOK TO THE BATHROOM. GOT PATIENT SOME OJ AND SOME MILK. TOOK LUNCH TRAY AND CLEAND HIM UP. CALL LIGHT IN REACH AND BED ALARM IS ON.
--- NOTE | 2016-10-01 17:30 | NUR ---
PT COMPLETED WITH EATING. PT ASSISTED TO BED, FACE WASHED, GOWN CHANGED. BED ALARM ON.
--- NOTE | 2016-10-01 17:46 | NUR ---
PT HAD UNEVENTFUL DAY. PT WORKED WITH PHYSICAL THERAPY, THERAPY HAS SIGNED OFF, PT HAS MET GOALS. PT ON ROOM AIR, LUNG SOUNDS CLEAR. PT TOLERATING REGULAR DIET, GOOD APPETITE. PT SBA WITH FWW. PT IMPULSIVE, BED ALARM ON. PT WITH CHRONIC FARMER, DRAINING FREELY. PLAN TO DISCHARGE ON WEDNESDAY.
--- NOTE | 2016-10-01 20:05 | NUR ---
REPORT RECIEVED FROM DAY SHIFT. PATIENT RESTING IN BED. DRESSING ON LEFT FOOT C/D/I. FARMER IS PLACE DRAINING CLEAR YELLOW URINE. OSTOMY BAG IN PLACE. CALL LIGHT WITHIN REACH. NO REQUEST AT THIS TIME.
--- NOTE | 2016-10-01 20:05 | NUR ---
REPORT RECIEVED FROM DAY SHIFT. PATIENT RESTING IN BED. DRESSING ON LEFT FOOT C/D/I. FARMER IS PLACE DRAINING CLEAR YELLOW URINE.CALL LIGHT WITHIN REACH. NO REQUEST AT THIS TIME.
--- NOTE | 2016-10-01 20:45 | NUR ---
PATIENT STATES THAT HE IS HAVING "MINOR PAIN" IN HIS LEFT LEG. PATIENT UNABLE TO RATE PAIN ON 1-10 SCALE. PATIENT REQUESTED PRN PAIN MEDICATION TO BE GIVEN WITH HIS EVENING MEDS. PATIENT IS ORIENTED TO SELF BUT NOT SURROUNDING. PATIENT IS REQUESTING TO HAVE HIS FACE SHAVEN AFTER HE REST FOR A WHILE. HEARING SPECIALIST AGREED TO HELP HIM WITH THAT TASK. PATIENT REQUESTED A SNACK AND WAS PROVIDED SOME PUDDING. PATIENT APPEARS ABLE TO EAT AND TAKE ORAL MEDS WITHOUT DIFFICULTY. HOWEVER HE DOES EAT VERY QUICKLY. HOB WAS ELEVATED AND PILLS GIVEN ON AT A TIME. PATIENT WAS REMINDED HOW TO USE HIS CALL LIGHT IF HE HAD ANY QUESTIONS OR REQUEST. PATIENT VERBALIZED UNDERSTANDING AND POINTED TO THE CALL LIGHT TO SHOW HE KNEW WHICH BUTTON TO PUSH. BED ALARM IS ON. NO FURTHER REQUEST AT THIS TIME.
--- NOTE | 2016-10-01 22:52 | NUR ---
PATIENT STATES HE IS COMFORTABLE. HE REQUESTED APPLE JUICE WHICH WAS GIVEN TO HIM. REMINDED TO USE THE CALL LIGHT AND VERBALIZED APPROPRIATE WAY TO USE THE CALL LIGHT. NO FURTHER REQUEST AT THIS TIME.
--- NOTE | 2016-10-02 00:48 | NUR ---
PATIENT RESTING IN BED. EYES CLOSED. RR 16. BREATHING SHALLOW AND REGULAR.
--- NOTE | 2016-10-02 01:54 | NUR ---
PATIENT RESTING IN BED. EYES CLOSED. RR 16.
--- NOTE | 2016-10-02 03:30 | NUR ---
PATIENT RESTING IN BED, EYES CLOSED, RR14.
--- NOTE | 2016-10-02 05:04 | NUR ---
PATIENT RESTED OFF AND ON THROUGHOUT SHIFT. PATIENT REQUIRED ONE DOSE OF PRN PAIN MEDICATION. PATIENT'S APPETITE GOOD. PATIENT DID NOT GET OUT OF BED DURING SHIFT. LUNG SOUNDS CLEAR. PATIENT ON RA. BOWEL SOUNDS ACTIVE. PATIENT IS STAND BY ASSIST W/FWW. PATIENT REQUIRES FREQUENT REMINDED. BED ALARM ON. CHRONIC FARMER IN PLACE, URINE OUTPUT QS. PATIENT IS TO WEAR WALKING BOOT ON LEFT FOOT WHEN OUT OF BED.
--- NOTE | 2016-10-02 06:49 | NUR ---
MORNING MEDS GIVEN PER ORDER. PATIENT REQUEST ORANGE JUICE WHICH WAS GIVEN TO HIM. ICE WATER REFILLED. PATIENT DENIES PAIN. FARMER DRAINING FREELY. FARMER EMPTIED. PATIENT DOES NOT WANT TO GET UP TO THE CHAIR AT THIS TIME. PATIENT HAS NO OTHER REQUEST. REMINDED PRPER USE F CALL LIGHT. CALL LIGHT IN REACH.
--- NOTE | 2016-10-02 07:36 | NUR ---
RECIEVED BEDSIDE REPORT FROM KEESHA DELGADO AND KEESHA HERNANDEZ. PT AWAKE IN BED. PT ALERT, ORIENTED TO SELF, KNOWS D/C IS TOMORROW. PT ATE BREAKFAST WITH ANALYST SALES ASSIT.
--- NOTE | 2016-10-02 10:18 | NUR ---
PT AWAKE AND ALERT, ORIENTATED TO SELF/BIRTHDAY. UNDERSTANDS DC TOMORROW, ASKS QUESTIONS RE DISCHARGE. PT VERBALIZED UNDERSTANDING OF PLAN. PT AGREED TO GET UP TO CHAIR LATER THIS MORNING.
--- NOTE | 2016-10-02 13:45 | NUR ---
PT SAT ON BSC, UNSUCCESSFUL. PT THEN TRANSFERED TO CHAIR. PT SITTING IN CHAIR, RESTING AT THIS TIME. PT ATE 25% OF LUNCH WITH RN CUEING TO SLOW DOWN. PT DECLINED SHOWER AT THIS TIME, WILL REAPPROCH AFTER HIS NAP.
--- NOTE | 2016-10-02 15:47 | NUR ---
RN ASSISTED PT WITH SHOWER. PT WAS ABLE TO WASH HIS FRONT, AND HEAD. PT RETURNED TO BED. DINNER ORDERED.
--- NOTE | 2016-10-02 17:16 | NUR ---
NURSE GAVE SHOWER TODAY.
--- NOTE | 2016-10-02 18:57 | NUR ---
PT UP TO CHAIR FOR MEALS. PT GOT ANXIOUS AFTER LUNCH, DISTRACTED HIM BY OFFERING A SHOWER. SHOWER COMPLETED WITH RN ASSISTANCE. PT VERY UNSTABLE ON FEET AND VERY IMPULSIVE. WITH FWW HE IS MORE STABLE, BUT STILL IMPULSIVE. NEEDS CUEING AND REMINDERS TO SWALLOW AND TAKE SMALL BITES. FARMER DRAINING WELL.
--- NOTE | 2016-10-02 19:47 | NUR ---
BEDSIDE SHIFT REPORT RECIEVED. PATIENT RESTING IN BED. STATES HE FEELS GOOD. PATIENT STATES HE IS READY TO GO HOME TOMORROW. PATIENT DENIES ANY NEEDS AT THIS TIME. FARMER IS IN PLACE. WALKING BOOT ON LEFT LEG. ИРИНА BANDAGE C/D/I. CALL LIGHT WITHIN REACH.
--- NOTE | 2016-10-02 19:58 | NUR ---
EVENING MEDS GIVEN PER ORDERS. PRN PAIN MEDS GIVEN PER PATIENT REQUEST. PATIENT REPORTS 5/10 PAIN IN HIS LEFT LEG. PATIENT WAS GIVEN A SNACK AND FRESH ICE WATER PER REQUEST. FARMER IS IN PLACE AND DRAINING FREELY. PATIENT IS COMFORTABLE IN BED. WALKING BOOT ON LEFT LEG. DRESSING C/D/I. PATIENT ORIENTED TO PERSON AND PLACE. EDUCATED PATIENT ON PROPER USE OF CALL LIGHT. HE VERBALIZED UNDERSTANDING. BED ALARM ON. SHIFT ASSESSMENT DONE AT THIS TIME.
--- NOTE | 2016-10-02 22:35 | NUR ---
PATIENT RESTING IN BED. HOB AT 50 DEGREE ANGLE. PATEINT EYES CLOSED. BREATHING SHALLOW AND NONLABORED. RR 16. BED ALARM ON. CALL LIGHT WITHIN REACH.
--- NOTE | 2016-10-02 23:28 | NUR ---
PATIENT RESTING IN BED. HOB RAISED TO 50 DEGREES. EYES CLOSED. RR16. BREATHING SHALLOW AND NONLABORED.
--- NOTE | 2016-10-03 01:13 | NUR ---
PATIENT IS RESTING IN BED WITH EYES CLOSED. BREATHING IS EVEN AND UNLABORED, RR 16. BED ALARM IS ON FOR SAFETY AND CALL LIGHT IN REACH.
--- NOTE | 2016-10-03 03:28 | NUR ---
PATIENT IS RESTING IN BED WITH EYES CLOSED, RR 17. BED ALARM REMAINS ON FOR SAFETY.
--- NOTE | 2016-10-03 06:03 | NUR ---
PATIENT RESTING IN BED. EYES CLOSED. RR16. HOB ELEVATED TO 50 DEGREES. CATHETER DRAINING CLEAR YELLOW URINE. FARMER EMPTIED. OUTPUT QS. CALL LIGHT WITHIN REACH.
--- NOTE | 2016-10-03 06:05 | NUR ---
PATIENT RESTED ON AND OFF THROUGHOUT THE NIGHT. PATIENT ALERT TO PERSON AND PLACE. PATIENT REQUIRED FREQUENT REMINDERS. BED ALARM ON. PATIENT 1PA W/FWW. PATIENT HAS TREMOR AND IS IMPULSIVE. MONITOR CLOSELY DURING AMBULATION. PATIENT HAS CHRONIC FARMER THAT IS DRAINING FREELY, CLEAR YELLOW URINE, OUTPUT QS. PATIENT HAS WALKING BOOT ON LEFT ANKLE. ИРИНА WRAP DRESSING C/D/I. PATIENT REPORTED 5/10 PAIN THAT WAS CONTROLED WITH PRN PAIN MED X1. PATIENT ON REGULAR DIET, TOLERATING WELL. PATIENT SELF FEEDS BUT EATS RAPIDLY AND REQUIRED MONITORING. NO IV.
--- NOTE | 2016-10-03 06:47 | NUR ---
MORNING MEDS GIVEN PER ORDER. PATIENT RESTINING IN BED. PATIENT STATES THAT HE "FEELS FINE". PATIENT DENIES PAIN. PATIENT DOES NOT WANT TO GET OUT OF BED AT THIS TIME. WALKING BOOT IS IN PLACE. ИРИНА WRAP IS C/D/I. FARMER IS IN PLACE AND DRAINING FREELY. PATIENT ALERT TO PERSON AND PLACE. BED ALARM IS ON. CALL LIGHT WITHIN REACH. NO FURTHER REQUEST AT THIS TIME.
--- NOTE | 2016-10-03 07:11 | NUR ---
RECIEVED BEDSIDE REPORT FROM KEESHA DELGADO AND KEESHA HERNANDEZ. PT RESTING IN BED WITH EYES OPEN. PT WISHED TO STAY IN BED AT THIS TIME.
--- NOTE | 2016-10-03 07:41 | NUR ---
ADVISED DR MONROE THAT PT CAREGIVER WOULD LIKE A PHONE CALL WHEN DR MONROE IS AVAILABLE.
[2016-10-03] MEDS ORDERED: OXYCODONE-ACET1 EAC1 PO (07:48)
--- NOTE | 2016-10-03 08:06 | NUR ---
ROUNDED WITH DR MONROE. DRESSING CHANGED PER DR MONROE REQUEST. BOOT BACK ON, PT TOLERATED WELL. PT ATE 100% OF BREAKFAST WITH CUES FROM RN TO SLOW DOWN AND CHEW WELL. PT ANXIOUS TO DC.
--- NOTE | 2016-10-05 10:53 | DS ---
[facility] [address] [place] [address] Signed ADMIT DATE: 09/25/2016 DISCHARGE DATE: 10/03/2016 BRIEF HISTORY: Mr. Bethea is a 61-year-old, MRDD gentleman, who had an ankle fracture dislocation. He underwent open reduction and internal fixation. Since he needs a higher level of care, he was felt to be stable for discharge to a swing bed status. He has been on swing bed status now for 8 days. He has done well, although he does not always keep his weight off that ankle. His pain control has been good on oxycodone 5. He has worked with physical therapy and is felt to be stable for discharge back to the care facility where he is currently staying. He will be discharged on the oxycodone and his current medications for seizures. He will follow up with me in 7-10 days. He will remain strictly nonweightbearing. Natalie Núñez MD BA/Huang /[id number] Electronically Signed By: NATALIE NÚÑEZ MD 10/05/16 1053 PATIENT NAME: MARCIANO CORONA CATY DISCHARGE SUMMARY DATE OF : 51 PHYSICIAN: NATALIE NÚÑEZ MD REPORT #: [id number] REPORT IS CONFIDENTIAL AND NOT TO BE RELEASED WITHOUT AUTHORIZATION
== END 2016-10-03 11:20 | disposition home or self-care (01) | DRG 561 ==
LOC: MS 06:38
PROVIDERS: ADMIT Specialist
DX: S82.842D Displaced bimalleolar fracture of left lower leg, subsequent encounter for closed fracture with routine healing (principal); X58.XXXD Exposure to other specified factors, subsequent encounter; F79 Unspecified intellectual disabilities; Z98.890 Other specified postprocedural states
CPT/HCPCS: 97110; 97116; 97162; 97530

== ENCOUNTER 2016-10-11 21:03 | Emergency (ER) | payer MEDICARE, OTHER ==
[~2016-10-11] VITALS: Ht 180.3 cm; Wt 88.3 kg
== END 2016-10-11 23:27 | disposition home or self-care (01) ==
LOC: ED 21:03
DX: T83.098A Other mechanical complication of other urinary catheter, initial encounter (principal); F31.9 Bipolar disorder, unspecified; Z90.89 Acquired absence of other organs; Z79.899 Other long term (current) drug therapy
CPT/HCPCS: 81001; 87077; 87088; 87186; 99283